=== PATIENT | male | born 1990 | race Caucasian/White ===

== ENCOUNTER 2024-06-17 22:17 | Emergency (ER) | payer BC, SELFPAY ==
[2024-06-17 22:21] VITALS: BP 136/93; PULSE 86; RESP 20; TEMP 36.8; O2SAT 98
--- NOTE | 2024-06-18 02:13 | ECG_ITS ---
Test Date: 2024-06-18 02:13:24 Measurements Intervals [place] Rate: 76 P: 36 NH: 159 QRS: 16 QRSD: 99 T: 4 QT: 399 QTc: 451 Interpretive Statements SINUS RHYTHM BORDERLINE ST-T WAVE ABNORMALITY- INFERIOR LEADS BORDERLINE ECG No previous ECG available for comparison Electronically Signed On 06-18-2024 09:13:18 CDT by Dennis Figueroa D.O.
[2024-06-18 02:30] VITALS: PULSE 78; RESP 17; O2SAT 98
[2024-06-18 02:31] VITALS: BP 135/92; PULSE 75; RESP 20; O2SAT 97
--- NOTE | 2024-06-18 04:13 | ED.ALCOHOL ---
HPI - Alcohol General Chief Complaint: Alcohol Stated Complaint: ALCOHOL WITHDRAWAL Time Seen by Provider: 06/18/24 02:12 History of Present Illness HPI narrative: 34-year-old male with no significant pertinent past medical history aside from daily alcohol intake. He states that he binge drinks occasionally. Last alcohol intake was 8:00 p.m. this afternoon. He states he drinks whiskey up to 2-3 pt per day. Has tried to quit before experience withdrawals including shakiness, anxiety and nauseousness. No history of withdrawal seizures. Is interested in pursuing therapies to help him quit. Is presently intoxicated on initial assessment. Not in any acute distress. No shaking, anxiety, nauseousness vomiting. He is accompanied by family members providing additional collateral formation. He states that he would be interested in medications to help his withdrawal symptoms and to cut back on drinking upon discharge. Related Data Allergies Allergy/AdvReac Type Severity Reaction Status Date / Time No Known Allergies Allergy Unverified 06/17/24 22:27 Review of Systems Review of Systems: As reviewed [facility] Family History Family History Father Hypertension Social History Social History Smoking status: Never smoker Alcohol intake: current Exam Narrative: GENERAL: Clinically intoxicated but not any acute distress, well-appearing otherwise. HEAD: [Normocephalic, atraumatic.] EYES: [PERRLA and EOMI.] ENT: Nares clear, no rhinorrhea or epistaxis. Mucous membranes moist. NECK: Supple. CHEST: [Clear to auscultation. No respiratory distress.] HEART: [Regular rate and rhythm]. No murmur heard. [Normal peripheral pulses.] ABDOMEN: [Soft, nondistended], [nontender], [No rigidity or guarding] EXTREMITIES: Normal range of motion. [No edema.] SKIN: Warm, dry, no rash. NEURO: [No focal deficits]. Alert and oriented [x3.] PSYCH: [Normal mood and affect.] Course Vital Signs Vital signs: Vital Signs Temperature 36.8 C 06/17/24 22:21 Pulse Rate 86 06/17/24 22:21 Respiratory Rate 20 09/28/24 22:21 Blood Pressure 136/93 H 06/17/24 22:21 Pulse Oximetry 98 06/17/24 22:21 Oxygen Delivery Room Air 06/17/24 22:21 Temperature 36.8 C 06/17/24 22:21 Pulse Rate 75 06/18/24 02:31 Respiratory Rate 20 06/18/24 02:31 Blood Pressure 135/92 H 06/18/24 02:31 Pulse Oximetry 97 06/18/24 02:31 Oxygen Delivery Room Air 06/17/24 22:21 MDM - Alcohol MDM Narrative Medical decision making narrative: 34-year-old male presenting in alcohol intoxication but with expressing concerns that he will through withdrawals and wants to help quit drinking. Patient states he has quit before for long-term up to 1 year. But had a relapse. He drinks up to 2-3 pt per day. Has been drinking in a binge drinking episode this past week. Last intake at 8:30 p.m.. Is still clinically intoxicated on my initial assessment but has normal reassuring vital signs and an unremarkable examination. No clinical signs of withdrawal, no nystagmus, tachycardia, hypertension, fever, shaking extremities, tremors. He was given a fluid bolus of D5 LR and a thiamine injection, multivitamin tab p.o.. CBC, CMP, EKG and a ethanol levels obtained. Patient will be observed for metabolic sobriety and will discuss options for alcohol withdrawal treatments thereafter include potential Librium taper or phenobarbital load. Patient's workup was largely reassuring, no significant leukocytosis or anemia. Mildly elevated alcohol level. Clinically sober. Electrolytes within normal limits, normal glucose. Mildly elevated T bili but otherwise unremarkable hepatic function panel. Patient was re-evaluated states he feels very tremulous, anxious and feeling like he is going through withdrawals now that he is metabolized s
[2024-06-18 04:16] LABS: Basophils Absolute Auto 0.1 K/mm3 (0.0-0.1); Basophils Percent Auto 0.9 % (0.2-1.2); Eosinophils Absolute Auto 0.1 K/mm3 (0-0.3); Eosinophils Percent Auto 1.6 % (0-4.4); Hematocrit 40.9 % (42.0-52.0); Hemoglobin 14.9 g/dL (14.0-18.0); Immature Granulocyte Absolute 0.02 K/mm3 (0.00-0.031); Immature Granulocyte Percent A 0.3 % (0-0.5); Lymphocytes Absolute Auto 2.93 K/mm3 (0.9-3.2); Lymphocytes Percent Auto 42.7 % (18.3-44.2); Mean Corpuscular HGB Conc 36.4 g/dl (32-36); Mean Corpuscular Hemoglobin 32.9 pg (26-34); Mean Corpuscular Volume 90.3 fl (80-100); Mean Platelet Volume 10.1 fl (7.4-10.4); Monocytes Absolute Auto 0.6 K/mm3 (0.1-0.6); Monocytes Percent Auto 9.3 % (2.6-8.5); Neutrophils Absolute Auto 3.1 K/mm3 (1.3-6.7); Neutrophils Percent Auto 45.2 % (45.5-73.1); Platelet Count Result 242 k/mm3 (150-375); Red Blood Count 4.53 M/mm3 (4.6-6.20); Red Cell Distribution Width 12.8 % (11.5-14.5); White Blood Count 6.9 K/mm3 (4.5-10.0)
[2024-06-18] MEDS: THIAMINE HCL 200 MG/2 ML VIAL 300 MG IV PUSH (04:21)
[2024-06-18] MEDS: DEXTROSE 5%/LACTATED RINGERS 1,000 ML 100 ML IV CONT (04:21)
[2024-06-18 04:26] LABS: Ethanol 116 mg/dL (<10)
[2024-06-18 04:34] LABS: Alanine Aminotransferase 35 U/L (6-50); Albumin Level 4.2 g/dL (3.5-5.1); Alkaline Phosphatase 58 U/L (38-126); Anion Gap 10 mmol/L (4-12); Aspartate Amino Transferase 43 U/L (17-59); Bilirubin,Total 2.5 mg/dL (0.2-1.3); Blood Urea Nitrogen 14 mg/dL (9-20); Calcium 7.9 mg/dL (8.4-10.2); Carbon Dioxide 26 mmol/L (22-30); Chloride 102 mmol/L (98-107); Estimated CRCL calculation 133 ml/min; Estimated Glomerular Filt Rate > 60; Glucose 99 mg/dL (65-110); Potassium 3.8 mmol/L (3.4-5.0); Sodium 138 mmol/L (137-145)
[2024-06-18] MEDS: THERAPEUTIC MULTIVITAMINS/MINERALS TAB (*BKC) 1 TABLET PO (05:56)
[2024-06-18] MEDS: PHENobarbitaL sodium (*CRX) 130 MG/ML VIAL 390 MG IV PUSH (06:49)
[2024-06-18 07:31] VITALS: BP 124/89; PULSE 80; RESP 19; O2SAT 98
== END 2024-06-18 08:30 | disposition home or self-care (01) ==
PROVIDERS: Emergency Provider Student in an Organized Health Care Education/Training Program
DX: F10.239 Alcohol dependence with withdrawal, unspecified (principal); F10.229 Alcohol dependence with intoxication, unspecified; Y90.5 Blood alcohol level of 100-119 mg/100 ml; R94.31 Abnormal electrocardiogram [ECG] [EKG]
CPT/HCPCS: 36415; 80053; 80307; 85025; 93005; 96361; 96374; 96375; 99284; A9270; J2560; J3411; J7121